=== PATIENT | female | born 1975 | race Caucasian/White ===

== ENCOUNTER 2017-05-19 12:14 | Inpatient (IN) | payer OTHER ==
[2017-05-19] VITALS (8 sets, daily range): BP systolic 0–174; BP diastolic 65–75; PULSE 66–85; RESP 16–20; TEMP 98.4–98.8; O2SAT 97–100
[~2017-05-19] VITALS: Ht 180.3 cm; Wt 125.0 kg
[~2017-05-19 12:14] MED LIST: CIPR500T2 PO; OXYC-360 PO
--- NOTE | 2017-05-19 12:38 | PD ---
Physical Exam Date Seen by Provider: May 19, 2017 Time Seen by Provider: 12:37 Data Data Last Documented VS Vital Signs Date Time Temp Pulse Resp B/P Pulse Ox O2 Delivery O2 Flow Rate FiO2 05/19/17 15:04 99 Room Air 05/19/17 15:04 130/75 05/19/17 12:37 85 18 05/19/17 12:[address] Brain W/O Iv Contrast(Rout) (05/19/17 12:32) Ct Cerv Spine W/O Contrast (05/19/17 12:32) Forearm (2vws) (05/19/17 12:32) Elbow, Complete (4 Vws) (05/19/17 12:32) Electrocardiogram (05/19/17 14:49) Basic Metabolic Panel (Bmp) (05/19/17 14:49) Ckmb (Isoenzyme) Profile (05/19/17 14:49) Complete Blood Count With Diff (05/19/17 14:49) Magnesium (Mg) (05/19/17 14:49) Prothrombin Time / Inr (Pt) (05/19/17 14:49) Act Partial Throm Time (Ptt) (05/19/17 14:49) Troponin I (05/19/17 14:49) Chest, Single Ap (05/19/17 14:49) Ecg Monitoring (05/19/17 14:49) Bilateral Bp Monitoring (05/19/17 14:49) Iv Access Insert/Monitor (05/19/17 14:49) Oximetry (05/19/17 14:49) Oxygen Administration (05/19/17 14:49) Sodium Chloride 0.9% Flush (Ns Flush) (05/19/17 15:00) [facility] Supervised Visit with RYAN: No Narrative Course I was asked to evaluate this patient's scalp laceration. The patient was initially seen by Dr. Hawk. Please see his note for full H& P. On my exam there is a 2 cm Y-shaped laceration in the parietal area just right of midline. Laceration repair was performed. Please see my procedure note for details. Dr. Hawk retains care of this patient. Please see his note for disposition. Procedures Procedure Narrative LACERATION LOCATION: Just right of the midline of the parietal scalp. LENGTH: 2 cm Y-shaped NUMBER OF STITCHES/ARJUN: 5 REPAIR: The area of the laceration was prepped with Betadine and sterilely draped. The laceration was infiltrated with 1% lidocaine. The wound was copiously irrigated and explored without evidence of foreign body, tendon injury or neurovascular injury. The wound was closed using surgical arjun. This was a single layer repair. The patient was advised to keep the wound clean and dry. Patient tolerated the procedure well. Eduarda Butts May 19, 2017 12:38
[2017-05-19] MEDS ORDERED: SERT25TA83 PO (12:43)
[2017-05-19] MEDS ORDERED: MONT10TA4 PO (12:43)
[2017-05-19] MEDS ORDERED: ROPI0.25 PO (12:43)
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
[2017-05-19] MEDS: SODIUM CHLORIDE 0.9% FLUSH 10 ML FLUSH IVF PRN ×3 (15:02→18:17)
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
[2017-05-19] MEDS ORDERED: MORPHINE SULFATE 4 MG/ML INJ IV ONE (15:15)
[2017-05-19] MEDS ORDERED: ONDANSETRON HCL 4 MG/2 ML VIAL IVP ONE (15:15)
[2017-05-19 15:16] LABS: AUTOMATED NEUTROPHIL # 1.8 TH/MM3 (1.8-7.7); BASOPHIL % 0.3 % (0.0-2.0); EOSINOPHIL # 0.1 TH/MM3 (0-0.4); EOSINOPHIL % 2.7 % (0.0-4.0); HEMATOCRIT 44.2 % (35.0-46.0); HEMO FLAGS DIFF FINAL; LYMPH % 49.4 % (9.0-44.0); LYMPHOCYTE # 2.2 TH/MM3 (1.0-4.8); MEAN CELL VOLUME 92.7 FL (80.0-100.0); MEAN CORPUSCULAR HEMOGLOBIN 30.5 PG (27.0-34.0); MEAN CORPUSCULAR HGB CONC 32.9 % (32.0-36.0); MONO % 8.4 % (0.0-8.0); NEUT % 39.2 % (16.0-70.0); PLATELET COUNT 197 TH/MM3 (150-450); RED BLOOD COUNT 4.76 MIL/MM3 (4.00-5.30); RED CELL DISTRIBUTION WIDTH 13.3 % (11.6-17.2); WHITE BLOOD COUNT 4.5 TH/MM3 (4.0-11.0)
[2017-05-19 15:20] LABS: APTT (PATIENT) 23.6 SEC (24.3-30.1); PROTHROMBIN TIME - PATIENT 10.5 SEC (9.8-11.6)
[2017-05-19] MEDS ORDERED: LIDOCAINE HCL 1% 20 ML VIAL INFIL ONE (15:30)
[2017-05-19 15:35] LABS: CREATINE KINASE 132 U/L (26-192)
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
[2017-05-19 15:47] LABS: CKMB 1.8 NG/ML (0.5-3.6)
[2017-05-19 15:52] LABS: ANION GAP 8 MEQ/L (5-15); BICARBONATE 24.9 MEQ/L (21.0-32.0); BLOOD UREA NITROGEN 15 MG/DL (7-18); CHLORIDE 109 MEQ/L (98-107); GLOMERULAR FILTRATION RATE 89 ML/MIN (>89); POTASSIUM 3.6 MEQ/L (3.5-5.1); SODIUM (NA) 142 MEQ/L (136-145)
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
[2017-05-19] MEDS ORDERED: HYDROmorphone HCL PF 1 MG/ML VIAL IVS ONE (17:30)
[2017-05-19] MEDS ORDERED: PILL SPLITTER OTHER PRN (19:15)
[2017-05-19] MEDS ORDERED: ONDANSETRON HCL 4 MG/2 ML VIAL IV ONE (21:15)
[2017-05-19] MEDS ORDERED: oxyCODONE/ACETAMINOPHEN 5 MG/325 MG TAB PO PRN (21:30)
[2017-05-20] MEDS: ONDANSETRON HCL 4 MG/2 ML VIAL IV PUSH PRN ×2 (01:50→09:10)
[2017-05-20 04:00] VITALS: BP 129/66; PULSE 91; RESP 18; TEMP 99.1; O2SAT 98
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
[2017-05-20] MEDS: MORPHINE SULFATE 4 MG/ML INJ IV PUSH PRN ×2 (05:07→08:18)
[2017-05-20] MEDS ORDERED: SENN1TAB PO (07:20)
[2017-05-20] MEDS ORDERED: MAGN400S PO (07:20)
[2017-05-20 07:54] VITALS: BP 114/72; PULSE 76; RESP 16; TEMP 98.9; O2SAT 96
[2017-05-20] MEDS ORDERED: DOCUSATE SODIUM 50 MG/SENNA 8.6 MG TAB PO SCH (09:00)
[2017-05-20] MEDS ORDERED: SERTRALINE HCL 50 MG TAB PO SCH (09:00)
[2017-05-20] MEDS ORDERED: OXYC1TAB63 PO (10:52)
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
[2017-05-20 12:00] VITALS: BP 117/69; PULSE 90; RESP 16; TEMP 98; O2SAT 96
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
[2017-05-20] MEDS ORDERED: FAMOTIDINE 20 MG TAB PO SCH (21:00)
[2017-05-20] MEDS ORDERED: MAGNESIUM HYDROXIDE SUSP 30 ML CUP PO SCH (21:00)
== END 2017-05-20 15:37 | disposition home or self-care (01) | DRG 552 ==
LOC: NEPC 12:14 → NEDA 17:28 → NEPFCDU 18:44 → OBSVTOIN 18:59
PROVIDERS: ADMIT Surgery; ATTEND Surgery
PROC: 0HQ0XZZ Repair Scalp Skin, External Approach (ICD-10-PCS; principal; 2017-05-19)
DX: S12.500A Unspecified displaced fracture of sixth cervical vertebra, initial encounter for closed fracture (principal); S06.0X0A Concussion without loss of consciousness, initial encounter; G89.29 Other chronic pain; S01.01XA Laceration without foreign body of scalp, initial encounter; J32.9 Chronic sinusitis, unspecified; K21.9 Gastro-esophageal reflux disease without esophagitis; S12.400A Unspecified displaced fracture of fifth cervical vertebra, initial encounter for closed fracture; M54.5 Low back pain; M50.322 Other cervical disc degeneration at C5-C6 level; V43.52XA Car driver injured in collision with other type car in traffic accident, initial encounter; Y92.410 Unspecified street and highway as the place of occurrence of the external cause; Z85.820 Personal history of malignant melanoma of skin
CPT/HCPCS: 12001; 70450; 71010; 72125; 72131; 73070; 73080; 73090; 80048; 82550; 82552; 83735; 84484; 85025; 85610; 85730; 96374; 96375; J1170; J2270; J2405; L0150; L0172